=== PATIENT | female | born 1995 | race Two or more races ===

== ENCOUNTER 2022-05-31 14:59 | Outpatient (CLI) | payer OTHER ==
[2022-05-31 15:19] LABS: BASOPHILS % (AUTO) 0.4 %; EOSINOPHILS # (AUTO) 0.5 10^3/uL (0.0-0.7); HCT - HEMATOCRIT 38.5 % (37.0-47.0); HGB - HEMOGLOBIN 13.1 g/dL (12.0-16.0); LYMPHOCYTES % (AUTO) 24.3 %; MEAN CORPUSCULAR HEMOGLOBIN 28.7 pg (27.0-31.0); MEAN CORPUSCULAR VOLUME 84.4 fL (81.0-99.0); MEAN PLATELET VOLUME 10.7 fL (7.9-10.8); MONOCYTES # (AUTO) 0.6 10^3/uL (0.0-1.0); MONOCYTES % (AUTO) 7.2 %; NEUTROPHILS # (AUTO) 5.2 10^3/uL (1.5-6.6); NEUTROPHILS % (AUTO) 61.6 %; PLT - PLATELET COUNT 233 10^3/uL (130-450); RED BLOOD COUNT 4.56 10^6/uL (4.20-5.40); RED CELL DISTRIBUTION WIDTH 13.5 % (12.0-15.0); WHITE BLOOD COUNT 8.4 x10^3/uL (4.8-10.8)
[2022-05-31 15:20] LABS: BILIRUBIN,URINE NEGATIVE (NEGATIVE); GLUCOSE, URINE (UA) NEGATIVE (NEGATIVE); KETONES,URINE (UA) NEGATIVE (NEGATIVE); LEUKOCYTE ESTERASE, URINE NEGATIVE (NEGATIVE); NITRITE,URINE NEGATIVE (NEGATIVE); OCCULT BLOOD,URINE NEGATIVE (NEGATIVE); PROTEIN,URINE NEGATIVE (NEGATIVE); UROBILINOGEN,URINE 0.2 (NORMAL) E.U./dL (NORMAL)
[2022-05-31 15:33] LABS: CLARITY,URINE CLEAR (CLEAR); RBC,URINE None Seen /HPF (0-5); WBC,URINE 0-3 /HPF (0-5)
[2022-05-31 15:34] LABS: BACTERIA,URINE Few /HPF (None Seen); MUCUS,URINE Few Strands; SQUAMOUS EPITHELIAL CELL,UR MANY Squamous (<= Few)
[2022-06-01 04:08] LABS: HBsAG SCREEN Negative (Negative); HCV AB <0.1 s/co ratio (0.0-0.9)
[2022-06-01 09:09] LABS: HIV SCREEN 4TH GENERATION Non Reactive (Non Reactive); VARICELLA-ZOSTER AB IGG 427 index (Immune >165)
[2022-06-05 13:10] LABS: RPR Reactive (Non Reactive); RPR QUANT Non Reactive (NonRea<1:1); TREPONEMA PALLIDUM ANTIBODIES Note: (Non Reactive)
== END 2022-05-31 15:00 | disposition home or self-care (01) ==
LOC: LAB 14:59
PROVIDERS: ATTEND Obstetrics & Gynecology
DX: Z34.90 Encounter for supervision of normal pregnancy, unspecified, unspecified trimester (principal)
CPT/HCPCS: 36415; 81001; 85025; 86592; 86593; 86762; 86780; 86787; 86803; 86850; 86900; 86901; 87086; 87340; 87389

== ENCOUNTER 2022-06-29 08:00 | Outpatient (CLI) | payer OTHER ==
[2022-06-29 13:02] LABS: BILIRUBIN,URINE NEGATIVE (NEGATIVE); GLUCOSE, URINE (UA) NEGATIVE (NEGATIVE); KETONES,URINE (UA) NEGATIVE (NEGATIVE); LEUKOCYTE ESTERASE, URINE NEGATIVE (NEGATIVE); NITRITE,URINE NEGATIVE (NEGATIVE); OCCULT BLOOD,URINE NEGATIVE (NEGATIVE); PH,URINE 6.5 PH (5.0-7.5); PROTEIN,URINE NEGATIVE (NEGATIVE); UROBILINOGEN,URINE 0.2 (NORMAL) E.U./dL (NORMAL)
[2022-06-29 13:03] LABS: CLARITY,URINE CLEAR (CLEAR)
[2022-06-29 13:09] LABS: BACTERIA,URINE None Seen /HPF (None Seen); RBC,URINE None Seen /HPF (0-5); SQUAMOUS EPITHELIAL CELL,UR NONE SEEN (<= Few); WBC,URINE 0-3 /HPF (0-5)
[2022-06-29 23:11] LABS: TRICHOMONAS VAGINALIS DNA NEGATIVE (NEGATIVE)
[2022-06-30 02:01] LABS: CHLAMYDIA TRACHOMATIS DNA NEGATIVE (NEGATIVE); NEISSERIA GONORRHOEAE DNA NEGATIVE (NEGATIVE)
== END 2022-06-29 23:59 | disposition home or self-care (01) ==
LOC: LAB.WC 08:00
PROVIDERS: ATTEND Obstetrics & Gynecology
DX: Z34.90 Encounter for supervision of normal pregnancy, unspecified, unspecified trimester (principal)
CPT/HCPCS: 81001; 87086; 87491; 87591; 87661

== ENCOUNTER 2022-07-25 15:08 | Outpatient (CLI) | payer OTHER ==
--- NOTE | 2022-07-26 17:51 | Ultrasound Report ---
PROCEDURE: OB Detailed Eval INDICATIONS: SUPERVISION OF OUTSIDE/PRIOR DATING DATA: Last menstrual period (LMP): 03/06/2022. LMP-based estimated date of delivery (ROBYN): 12/11/2022. First dating scan (date and location): 05/28/2022. Estimated date of delivery (ROBYN) from first dating scan: 12/10/2022. The below data below was generated using the ROBYN of TECHNIQUE: Real-time scanning was performed of the fetus, with image documentation and biometric measurements. COMPARISON: OB ultrasound 05/28/2022 FINDINGS: General: A single living intrauterine gestation is present. Presentation: Vertex Placenta: Placental position is anterior, without previa. Amniotic fluid index: 13 cm, within normal limits for gestational age. Largest pocket measures 4.6 cm heart rate: 144 beats per minute. Maternal cervical canal: 4.7 cm long; normal length is 2.5 cm or more. biometrics: Biparietal diameter: 4.4 cm 19 weeks 2 days Head circumference: 16.8 cm 19 weeks 3 days Abdominal circumference: 15 cm 20 weeks 1 day Femur length: 3.3 cm 20 weeks 2 days Estimated gestational age from initial scan: 20 weeks 2 days Composite gestational age from present scan: 19 weeks 4 days Estimated weight and percentile: 3 34 g 37th percentile Measurement variability in biometric dating: +/- 10 days from 12-20 weeks gestation, +/- 2 weeks from 20-30 weeks gestation, +/- 3 weeks at 30 weeks gestation or later. Anatomic survey: Neuro: Ventricles are normal at less than 10 mm. Cisterna magna is normal at 3-11 mm. Cerebellum i s normal in size and morphology. Nuchal skin fold: Normal at less than 6 mm between 14 and 20 weeks gestational age. Face: Nose and lips, facial profile are normal. Spine: No evidence for spina bifida. Heart: 4-chambered heart is present, with normal ventricular outflow tracts. Diaphragm: Diaphragm is intact. Stomach: Left-sided stomach is present. Kidneys: No hydronephrosis. Normal is less than 5 mm in 2nd trimester, less than 7 mm in 3rd trimester. Cord: 3 vessel cord has orthotopic insertion. Bladder: Normal in size. Extremities: All 4 extremities are visualized. IMPRESSION: Single live intrauterine with ultrasound gestational age today of 19 weeks 4 days. Anatomy is within normal limits. Reviewed by: Lexi Rosa MD on 07/26/2022 5:50 PM PST Approved by: Lexi Rosa MD on 07/26/2022 5:50 PM PST Station ID: [id number]
== END 2022-07-25 15:09 | disposition home or self-care (01) ==
LOC: DI 15:08
PROVIDERS: ATTEND Obstetrics & Gynecology
DX: Z34.92 Encounter for supervision of normal pregnancy, unspecified, second trimester (principal)

== ENCOUNTER 2022-08-01 14:10 | Outpatient (CLI) | payer OTHER | END 2022-08-01 14:11 | disposition home or self-care (01) | LOC: LAB 14:10 | PROVIDERS: ATTEND Obstetrics & Gynecology | DX: Z34.90 Encounter for supervision of normal pregnancy, unspecified, unspecified trimester (principal) ==

== ENCOUNTER 2022-09-19 09:07 | Outpatient (CLI) | payer OTHER ==
[2022-09-19 12:09] LABS: HCT - HEMATOCRIT 37.2 % (37.0-47.0); HGB - HEMOGLOBIN 12.3 g/dL (12.0-16.0); MEAN CORPUSCULAR HEMOGLOBIN 29.9 pg (27.0-31.0); MEAN CORPUSCULAR HGB CONC 33.1 g/dL (32.0-36.0); MEAN CORPUSCULAR VOLUME 90.5 fL (81.0-99.0); RED BLOOD COUNT 4.11 10^6/uL (4.20-5.40); RED CELL DISTRIBUTION WIDTH 12.7 % (12.0-15.0); WHITE BLOOD COUNT 7.8 x10^3/uL (4.8-10.8)
== END 2022-09-19 09:08 | disposition home or self-care (01) ==
LOC: LAB.N 09:07
PROVIDERS: ATTEND Obstetrics & Gynecology
DX: Z34.90 Encounter for supervision of normal pregnancy, unspecified, unspecified trimester (principal)
CPT/HCPCS: 36415; 82950; 85027

== ENCOUNTER 2022-09-27 07:48 | Outpatient (CLI) | payer OTHER ==
[2022-09-27 08:28] LABS: GTT GLUCOSE,FASTING 82 mg/dL (70-100)
== END 2022-09-27 07:49 | disposition home or self-care (01) ==
LOC: LAB 07:48
PROVIDERS: ATTEND Obstetrics & Gynecology
DX: O99.810 Abnormal glucose complicating pregnancy (principal)
CPT/HCPCS: 36415; 82951; 82952

== ENCOUNTER 2022-11-07 12:27 | Outpatient (CLI) | payer OTHER ==
--- NOTE | 2022-11-07 14:34 | Ultrasound Report ---
PROCEDURE: OB F/U or Repeat INDICATIONS: GESTATIONAL DIABETES OUTSIDE/PRIOR DATING DATA: Last menstrual period (LMP): 03/06/2022. LMP-based estimated date of delivery (ROBYN): 12/11/2022. First dating scan (date and location): 05/28/2022, physician office. Estimated date of delivery (ROBYN) from first dating scan: 12/10/2022. The below data below was generated using the ultrasound ROBYN of 12/10/2022 TECHNIQUE: Real-time scanning was performed of the fetus, with image documentation and biometric measurements. Endovaginal scanning: Not performed COMPARISON: 07/25/2022 FINDINGS: General: A single living intrauterine gestation is present. Presentation: Vertex Placenta: Placental position is anterior, without previa. Amniotic fluid index: 11.5 cm, within normal limits for gestational age. heart rate: 143 beats per minute. Maternal cervical canal: 4.1 cm long; normal length is 2.5 cm or more. biometrics: Biparietal diameter: 8.53 cm, 34 weeks 3 days Head circumference: 30.31 cm, 33 weeks 5 days Abdominal circumference: 32.37 cm, 36 weeks 2 days Femur length: 6.77 cm, 34 weeks 6 days Estimated gestational age from initial scan: 35 weeks 2 days Composite gestational age from present scan: 34 weeks 6 days Estimated weight and percentile: 2670.4 g, 51.5 percentile Measurement variability in biometric dating: +/- 10 days from 12-20 weeks gestation, +/- 2 weeks from 20-30 weeks gestation, +/- 3 weeks at 30 weeks gestation or more. Other: Not applicable. IMPRESSION: 1. Living third trimester intrauterine with no sonographic evidence of complications. 2. Normal interval growth. Today's calculated age is 3 days less than clinical age based on initial u ltrasound. Reviewed by: Chad Rogers MD on 11/07/2022 2:33 PM PDT Approved by: Chad Rogers MD on 11/07/2022 2:33 PM PDT Station ID: [id number]
== END 2022-11-07 12:28 | disposition home or self-care (01) ==
LOC: DI 12:27
PROVIDERS: ATTEND Obstetrics & Gynecology
DX: O24.410 Gestational diabetes mellitus in pregnancy, diet controlled (principal); Z3A.34 34 weeks gestation of pregnancy

== ENCOUNTER 2022-11-15 08:00 | Outpatient (CLI) | payer OTHER | END 2022-11-15 23:59 | disposition home or self-care (01) | LOC: LAB.WC 08:00 | PROVIDERS: ATTEND Obstetrics & Gynecology | DX: Z36.85 Encounter for antenatal screening for Streptococcus B (principal) | CPT/HCPCS: 87797 ==

== ENCOUNTER 2022-12-12 16:42 | Inpatient (IN) | payer OTHER ==
[2022-12-12] MEDS ORDERED: lidocaine 1% 20 ML MDV ID PRN (17:05)
[2022-12-12] MEDS ORDERED: miSOPROStoL 200 MCG TABLET BC PRN (17:05)
[2022-12-12] MEDS ORDERED: LABETALOL 20 MG/4 ML SYRINGE IVP PRN ×3 (17:05)
[2022-12-12] MEDS ORDERED: OXYTOCIN 10 UNIT/ML VIAL IM PRN (17:05)
[2022-12-12] MEDS ORDERED: fentaNYL 100 MCG/2 ML VIAL IVP PRN (17:05)
[2022-12-12] MEDS ORDERED: OXYTOCIN/SODIUM CHLORIDE 500 ML IV PRN (17:05)
[2022-12-12] MEDS ORDERED: NIFEdipine 10 MG CAPSULE PO PRN (17:05)
[2022-12-12] MEDS ORDERED: METHYLERGONOVINE 0.2 MG/ML VIAL IM PRN (17:05)
[2022-12-12] MEDS ORDERED: TRANEXAMIC ACID IN NACL 1,000 MG/100 ML BAG IV PRN (17:05)
[2022-12-12] MEDS ORDERED: CARBOPROST TROMETHAMINE 250 MCG/ML AMP IM PRN (17:05)
[2022-12-12] MEDS ORDERED: miSOPROStoL 200 MCG TABLET PR PRN (17:05)
[2022-12-12] MEDS ORDERED: SODIUM CHLORIDE FLUSH 0.9% 10 ML SYRINGE IVP PRN (17:05)
[2022-12-12] MEDS ORDERED: hydrALAZINE INJ 20 MG/ML VIAL IVP PRN ×2 (17:05)
--- NOTE | 2022-12-12 17:16 | HISTORY & PHYSICAL EXAMINATION ---
Admit History - Visit Reason Visit Reason: Other (induction of labor.) - : 2 Parity: 1 Care: positive: [facility] Risk/History: positive: Gestational diabetes (diet controlled) Review of Systems - Cardiovascular Cariovascular: denies: Chest pain - Respiratory Respiratory: denies: SOB at rest - All Other Systems All Other Systems: reports: Reviewed and negative Physical - Abdominal Exam Vital Signs: Temp Pulse Resp BP Pulse Ox O2 Flow Rate 97.9 F 121 H 16 108/74 100 12/12/22 17:01 12/12/22 17:01 12/12/22 17:01 12/12/22 17:01 12/12/22 17:01 - Vaginal Exam Dilation (in cm): 0 Plan for Labor - Plan For Labor Plan for Labor: induction of labor -cytotec discussed risks, benefits, and alternatives with patient and all questions answered.
[2022-12-12] MEDS ORDERED: miSOPROStoL 100 MCG TABLET BC ONE (18:00)
[2022-12-12] MEDS ORDERED: OXYTOCIN/SODIUM CHLORIDE 500 ML IV SCH (18:00)
[2022-12-12 18:03] LABS: BASOPHILS % (AUTO) 0.4 %; EOSINOPHILS # (AUTO) 0.1 10^3/uL (0.0-0.7); EOSINOPHILS % (AUTO) 1.7 %; HCT - HEMATOCRIT 36.9 % (37.0-47.0); HGB - HEMOGLOBIN 12.1 g/dL (12.0-16.0); LYMPHOCYTES # (AUTO) 1.2 10^3/uL (1.5-3.5); MEAN CORPUSCULAR HEMOGLOBIN 28.8 pg (27.0-31.0); MEAN CORPUSCULAR HGB CONC 32.8 g/dL (32.0-36.0); MEAN CORPUSCULAR VOLUME 87.9 fL (81.0-99.0); MEAN PLATELET VOLUME 12.3 fL (7.9-10.8); MONOCYTES # (AUTO) 0.7 10^3/uL (0.0-1.0); MONOCYTES % (AUTO) 9.2 %; NEUTROPHILS # (AUTO) 5.2 10^3/uL (1.5-6.6); NEUTROPHILS % (AUTO) 72.6 %; PLT - PLATELET COUNT 170 10^3/uL (130-450); RED CELL DISTRIBUTION WIDTH 14.4 % (12.0-15.0); WHITE BLOOD COUNT 7.2 x10^3/uL (4.8-10.8)
[2022-12-12 18:17] LABS: ALBUMIN 3.1 g/dL (3.2-5.5); ALBUMIN/GLOBULIN RATIO 0.8 (1.0-2.2); BILIRUBIN,TOTAL 0.5 mg/dL (0.2-1.0); CALCIUM 8.9 mg/dL (8.5-10.3); CREATININE 0.5 mg/dL (0.4-1.0); POTASSIUM 4.1 mmol/L (3.5-5.0); TOTAL PROTEIN 6.9 g/dL (6.7-8.2)
[2022-12-12] MEDS: SODIUM CHLORIDE FLUSH 0.9% 10 ML SYRINGE IVP SCH (20:08)
[2022-12-12] MEDS: miSOPROStoL 100 MCG TABLET BC SCH ×2 (20:29→22:46)
[2022-12-12] MEDS: LACTATED RINGERS 1,000 ML IV SCH (20:42)
[2022-12-13] MEDS: miSOPROStoL 100 MCG TABLET BC SCH ×4 (03:23→21:27)
[2022-12-13] MEDS: SODIUM CHLORIDE FLUSH 0.9% 10 ML SYRINGE IVP SCH (03:25)
[2022-12-13] MEDS: LACTATED RINGERS 1,000 ML IV SCH (03:25)
[2022-12-13] MEDS ORDERED: ROPIVACAINE 0.2% 200 MG/100 ML BAG EP ONE (03:33)
[2022-12-13] MEDS ORDERED: ePHEDrine 50 MG/ML VIAL IVP PRN (04:11)
[2022-12-13] MEDS ORDERED: ONDANSETRON 4 MG/2 ML VIAL IVP PRN (04:11)
[2022-12-13] MEDS ORDERED: ROPIVACAINE 0.2% 200 MG/100 ML BAG EP PRN (04:11)
[2022-12-13] MEDS ORDERED: diphenhydrAMINE INJ 50 MG/ML VIAL IVP PRN (04:11)
[2022-12-13] MEDS ORDERED: METOCLOPRAMIDE 10 MG/2 ML VIAL IVP PRN (04:11)
[2022-12-13] MEDS ORDERED: NALBUPHINE 10 MG/ML AMP IVP PRN (04:11)
[2022-12-13] MEDS ORDERED: NALOXONE 0.4 MG/ML VIAL IVP PRN (04:11)
--- NOTE | 2022-12-13 04:14 | ANESTHESIA ---
Pre-Anesthesia VS, & Labs - Diagnosis term labor IUP - Procedure Epidural for Vital Signs: Temp Pulse Resp BP Pulse Ox O2 Flow Rate 36.7 C 85 18 125/76 95 12/12/22 20:00 12/12/22 20:00 12/12/22 20:00 12/12/22 20:00 12/12/22 20:00 Height: 5 ft 5 in Weight (kg): 90.718 kg Body Mass Index: 33.3 BMI Classification: Obese - NPO Last Fluid Intake: t/o night Last Food Intake: full dinner 12/12 - Is Patient ?: Yes - Lab Results Current Lab Results: Laboratory Tests 12/12/22 17:30: Blood Type O POSITIVE, Antibody Screen NEGATIVE 12/12/22 17:30: Sodium 137, Potassium 4.1, Chloride 106, Carbon Dioxide 23, An ion Gap 8.0, BUN 16, Creatinine 0.5, Estimated GFR (MDRD) 147, Glucose 80, Calcium 8.9, Total Bilirubin 0.5, AST 21, ALT 17, Alkaline Phosphatase 128 H, Total Protein 6.9, Albumin 3.1 L, Globulin 3.8, Albumin/Globulin Ratio 0.8 L 12/12/22 17:30: WBC 7.2, RBC 4.20, Hgb 12.1, Hct 36.9 L, MCV 87.9, MCH 28.8, MCHC 32.8, RDW 14.4, Plt Count 170, MPV 12.3 H, Neut # (Auto) 5.2, Lymph # (Auto) 1.2 L, [place] # (Auto) 0.7, Eos # (Auto) 0.1, Baso # (Auto) 0.0, Absolute Nucleated RBC 0.00, Nucleated RBC % 0.0 Fish Bones: 12/12/22 17:30 12/12/22 17:30 Home Medications and Allergies Active Medications Carboprost Tromethamine (Carboprost Tromethamine 250 Mcg/Ml Amp) 250 mcg IM .ONCE PRN PRN Reason: Hemorrhage Diphenhydramine HCl (Diphenhydramine Inj 50 Mg/Ml Vial) 12.5 - 25 mg IVP Q6HR PRN PRN Reason: ITCHING Ephedrine Sulfate (Ephedrine 50 Mg/Ml Vial) 5 mg IVP Q5M PRN PRN Reason: For SBP<100;give until SBP>100 Fentanyl (Fentanyl 100 Mcg/2 Ml Vial) 50 mcg IVP Q1H PRN PRN Reason: Severe Pain (score 7-10) Hydralazine HCl (Hydralazine Inj 20 Mg/Ml Vial) 5 - 10 mg IVP Q20M PRN; Protocol PRN Reason: SBP> or= 160 OR DBP> or= 110 Hydralazine HCl (Hydralazine Inj 20 Mg/Ml Vial) 10 mg IVP .ONCE PRN; Protocol PRN Reason: SBP> or= 160 OR DBP> or= 110 Oxytocin/Sodium Chloride (Pitocin/Sodium Chloride) 500 mls @ 999 mls/hr IV PRN PRN; Protocol PRN Reason: POST- HEMORR PREVENTION Tranexamic Acid (Tranexamic 1,000 Mg/100ml-Nacl) 1,000 mg in 100 mls @ 600 mls/hr IV Q30M PRN PRN Reason: EBL >1200mL and within 3hr Oxytocin/Sodium Chloride (Pitocin/Sodium Chloride) 500 mls @ 1 mls/hr IV TITR KARMEN; Protocol Last Admin: 12/12/22 20:41 Dose: Not Given Lactated Ringer's (Lr) 1,000 mls @ 125 mls/hr IV .Q8H KARMEN Last Admin: 12/13/22 03:25 Dose: 125 mls/hr Ropivacaine (Naropin 0.2%) 200 mg in 100 mls @ 0 mls/hr EP PRN PRN; Protocol PRN Reason: PAIN Labetalol HCl (Labetalol 20 Mg/4 Ml Syringe) 20 - 80 mg IVP Q10M PRN; Protocol PRN Reason: SBP> or= 160 OR DBP> or= 110 Labetalol HCl (Labetalol 20 Mg/4 Ml Syringe) 20 mg IVP .ONCE PRN; Protocol PRN Reason: SBP> or= 160 OR DBP> or= 110 Labetalol HCl (Labetalol 20 Mg/4 Ml Syringe) 20 - 40 mg IVP Q10M PRN; Protocol PRN Reason: SBP> or= 160 OR DBP> or= 110 Lidocaine HCl (Lidocaine 1% 20 Ml Mdv) 20 ml ID .ONCE PRN PRN Reason: PERINEAL REPAIR Stop: 12/15/22 17:05 Methylergonovine Maleate (Methylergonovine 0.2 Mg/Ml Vial) 0.2 mg IM .ONCE PRN PRN Reason: Hemorrhage Metoclopramide HCl (Metoclopramide 10 Mg/2 Ml Vial) 10 mg IVP Q6HR PRN PRN Reason: Nausea / Vomiting Misoprostol (Misoprostol 200 Mcg Tablet) 600 mcg BC .ONCE PRN PRN Reason: Hemorrhage Misoprostol (Misoprostol 200 Mcg Tablet) 800 mcg [place] .ONCE PRN PRN Reason: Hemorrhage Misoprostol (Misoprostol 100 Mcg Tablet) [address] [facility] Stop: 12/13/22 14:01 Last Admin: 12/13/22 03:23 Dose: Not Given Nalbuphine HCl (Nalbuphine 10 Mg/Ml Amp) 2.5 - 5 mg IVP Q4H PRN PRN Reason: ITCHING Naloxone HCl (Naloxone 0.4 Mg/Ml Vial) 0.1 mg IVP Q2M PRN PRN Reason: RR<8 Nifedipine (Nifedipine 10 Mg Capsule) 10 - 20 mg PO Q20M PRN; Protocol PRN Reason: SBP> or= 160 OR DBP> or= 110 Ondansetron HCl (Ondansetron 4 Mg/2 Ml Vial) 4 mg IVP Q6HR PRN PRN Reason: Nausea / Vomiting Oxytocin (Oxytocin 10 Unit/Ml Vial) 10 unit IM .ONCE PRN PRN Reason: Step One if no IV access. Sodium Chloride (Sodium Chloride Flush 0.9% 10 Ml Syringe) 10 ml IVP PRN PRN PRN Reason: NEEDED PER PROVIDER ORDERS Sodium Chloride (Sodium Chloride Flush 0.9% 10 Ml Syringe) [address] [facility] Last Admin: 12/13/22 03:25 Dose: 10 ml Allergies/Adverse Reactions: Allergies Allergy/AdvReac Type Severity Reaction Status Date / Time pollen extracts Allergy Mild Respiratory Verified 12/12/22 20:45 Anes History & Medical History - Anesthetic History Anesthesia Complications: reports: No previous complications Family history of Anesthesia Complications: Denies Family history of Malignant Hyperthermia: Denies - Medical History Cardiovascular: reports: Hypertension Pulmonary: reports: None Gastrointestinal: reports: GERD Urinary: reports: None Neuro: reports: None Musculoskeletal: reports: None Endocrine/Autoimmune: reports: None Blood Disorders: reports: None Smoking Status: Never smoker History of Cancer?: No - Surgical History Other Past Surgical History: wisdom teeth extraction. previous epidural for delivery - Obstetrical History : 2 Parity: 1 Events: reports: Gestational diabetes (diet controlled) Exam General: Alert, Oriented x3, Cooperative Dental: WNL Neck Mobility: Normal Mallampati classification: I Thyromental Distance: 4-6 cm Respiratory: No respiratory distress Cardiovascular: Regular rate Neurological: Normal speech Mental/Cognitive Status: Alert/Oriented X3, Normal for patient Cognitive Status: Within normal limits Plan Anesthesia Type: Epidural Consent for Procedure(s) Verified and Reviewed: Yes Code Status: Attempt Resuscitation ASA classification: 2-Mild systemic disease Is this case an emergency?: No
--- NOTE | 2022-12-13 06:48 | DELIVERY NOTE ---
Delivery Note - Labor Labor: positive: Other (Inducted by misoprostol) - Delivery Method Infant Delivery Method: positive: Spontaneous vaginal delivery - Cervical Ripening Method Cervical Ripening Method: positive: Misoprostil - Presentation Presentation: positive: Vertex - Nuchal Cord Nuchal Cord: positive: None, Present (loose nuchal x 1 reduced at perineum) - Anesthetic Anesthetic Type: - Amniotic Fluid Description Amniotic Fluid Description: positive: Clear - Laceration Laceration: positive: None - Delivery Outcome Delivery Outcome: positive: Livebirth - : positive: Placed in direct skin contact with mother, [place] used sex: positive: Female - Cord Cord: positive: 3 vessels - Placenta Placenta: positive: Intact, Spontaneous - Estimated Blood Loss Estimated Blood Loss (in cc): 100 - Post Delivery Events Post Delivery Events: positive: No post delivery events - Delivery Comments (Free Text/Narrative) Delivery Comments (Free Text/Narrative): Stage I: Patient is a presenting for induction of labor Misoprostol was given for cervical ripening FHTs remained reassuring throughout the first stage. Patient received an epidural for anesthesia. Stage II: Female was atraumatcally delivered from DAMIAN position. Loose nuchal cord x 1 reduced at perineum. The anterior shoulder was delivered without difficulty followed by the posterior shoulder and body. Infant was vigorous at delivery. was bulb suctioned and cord was doubly clamped and cut. Infant was placed on mom. Weight pending, APGARS 9/9. Stage III: Gentle cord traction and crede maneuver were used. Placenta delivered spontaneously, intact, 3vc. Course: Uterine tone was firm with massage after delivery of the placenta, pitocin was started.
--- NOTE | 2022-12-13 06:53 | PROCEDURE REPORT ---
Hospitalist Procedure Note - Procedure Note Procedure Note: Delivery Note - Labor Labor: positive: Other (Inducted by misoprostol) - Infant Delivery Method Infant Delivery Method: positive: Spontaneous vaginal delivery - Cervical Ripening Method Cervical Ripening Method: positive: Misoprostil - Presentation Presentation: positive: Vertex - Nuchal Cord Nuchal Cord: positive: None, Present (loose nuchal x 1 reduced at perineum) - Anesthetic Anesthetic Type: - Amniotic Fluid Description Amniotic Fluid Description: positive: Clear - Laceration Laceration: positive: None - Delivery Outcome Delivery Outcome: positive: Livebirth - : positive: Placed in direct skin contact with mother, [place] used [place] sex: positive: Female - Cord Cord: positive: 3 vessels - Placenta Placenta: positive: Intact, Spontaneous - Estimated Blood Loss Estimated Blood Loss (in cc): 100 - Post Delivery Events Post Delivery Events: positive: No post delivery events - Delivery Comments (Free Text/Narrative) Delivery Comments (Free Text/Narrative): Stage I: Patient is a presenting for induction of labor Misoprostol was given for cervical ripening FHTs remained reassuring throughout the first stage. Patient received an epidural for anesthesia. Stage II: Female infant was atraumatcally delivered from DAMIAN position. Loose nuchal cord x 1 reduced at perineum. The anterior shoulder was delivered without difficulty followed by the posterior shoulder and body. was vigorous at delivery. Infant was bulb suctioned and cord was doubly clamped and cut. was placed on mom. Weight pending, APGARS 9/9. Stage III: Gentle cord traction and crede maneuver were used. Placenta delivered spontaneously, intact, 3vc. Course: Uterine tone was firm with massage after delivery of the placenta, pitocin was started.
[2022-12-13] MEDS ORDERED: LACTATED RINGERS 1,000 ML IV SCH ×2 (07:00→10:00)
[2022-12-13] MEDS ORDERED: SIMETHICONE CHEW 80 MG TABLET PO PRN (09:51)
[2022-12-13] MEDS ORDERED: DOCUSATE SODIUM 100 MG CAPSULE PO PRN ×2 (09:51→22:23)
[2022-12-13] MEDS: ACETAMINOPHEN 500 MG TABLET PO SCH ×2 (10:08→17:47)
[2022-12-13] MEDS: IBUPROFEN 600 MG TABLET PO SCH ×3 (10:08→22:36)
[2022-12-13] MEDS: DOCUSATE SODIUM 100 MG CAPSULE PO PRN (22:36)
[2022-12-13] MEDS ORDERED: DOCUSATE SODIUM 100 MG CAPSULE PO SCH (23:00)
[2022-12-14] MEDS: ACETAMINOPHEN 500 MG TABLET PO SCH (01:25)
[2022-12-14] MEDS: IBUPROFEN 600 MG TABLET PO SCH (05:17)
--- NOTE | 2022-12-14 06:51 | DISCHARGE SUMMARY ---
Discharge Summary Admit Date: 12/12/22 Discharge Date: 12/14/22 Discharging Provider: Blaze Tony MD Code Status: Attempt Resuscitation Condition at Discharge: Good Discharge Disposition: 01 Home, Self Care - DIAGNOSES Admission Diagnoses: 39 weeks gestation A1 GDM Induction of labor Discharge Diagnoses with Status of Each Condition: 39 weeks gestation A1 GDM Induction of labor Status post spontaneous vaginal delivery Delivery of live ferrara - HPI History of Present Illness: Subjective Patient reports she is doing well. Lochia appropriate. Denies heavy bleeding. Ambulating. Pelvic and abdominal pain well-controlled. Tolerating oral intake. Diet: Regular. Voiding without difficulty. Passing flatus. Denies BM. Patient is bonding with baby in room Breast feeding going well. Denies feeling lightheaded, dizzy or excessively fatigued. Objective General: Alert, oriented, no apparent distress. Cardiovascular: Regular rate. Regular rhythm. Lungs: No increased work of breathing. Abdomen: Uterus firm. Below umbilicus. No guarding or rebound. Extremities: No pain on palpation. No cords palpated. Distal pulses intact. - HOSPITAL COURSE Hospital Course: Patient is a 19-year-old G2, P1 who presented at 39 weeks gestation for induction of labor secondary to A1 GDM. She received misoprostol for cervical ripening. She received an epidural for pain control. Delivery was uncomplicated and course was similarly unremarkable. She desired to discharge on day 1. weight 3264 g - ALLERGIES Allergies/Adverse Reactions: Allergies Allergy/AdvReac Type Severity Reaction Status Date / Time pollen extracts Allergy Mild Respiratory Verified 12/12/22 20:45 - LABS Result Diagrams: 12/12/22 17:30 12/12/22 17:30 - FOLLOW UP Follow Up: With Blaze Tony MD in 1 week - TIME SPENT Time Spent in Discharge (Minutes): 20
--- NOTE | 2022-12-14 06:53 | Discharge Plan ---
Discharge Plan Problem Reviewed?: Yes Disposition: Home, Self Care Condition: Good Diet: Regular Activity Restrictions: Activity as Tolerated Shower Restrictions: No Driving Restrictions: No Instruction Topics: Vaginal After, Depression No Smoking: If you smoke, Please STOP! Call for help. Follow-up with: Blaze Tony MD [Provider Admit Priv/Credential] -
[2022-12-14 08:00] VITALS: BP 115/72
[2022-12-14] MEDS: DOCUSATE SODIUM 100 MG CAPSULE PO PRN (09:37)
[2022-12-14] MEDS ORDERED: MEASLES,MUMPS & RUBELLA VACC 0.5 ML VIAL SUBQ ONE ×2 (11:10→11:13)
--- NOTE | 2022-12-14 11:28 | Labor Flowsheet ---
Labor Flowsheet Datetime Report Generated by CPN: 12/14/2022 11:28 Datetime: 12/14/2022 07:55 VITAL SIGNS NBP Sys/Alejandra/Mean (mmHg): 115 : 72 : 82 Pulse: 69 Datetime: 12/13/2022 08:29 Stage of : Recovery PAIN Pain Scale: 0 Pain Presence: None/Denies Datetime: 12/13/2022 07:59 Respirations: 17 SpO2 (%): 98 Temperature (C): 36.8 Temperature Route: Oral Datetime: 12/13/2022 06:35 UTERINE ACTIVITY Monitor Mode: External Frequency (min): 2 Quality: Strong Duration (sec): 60-80 Pattern: Normal: <= 5 Contractions in 10 Minutes Resting Tone (Palpate): Relaxed FHR Baseline Rate : 125 Datetime: 12/13/2022 06:33 Pushing Progress: with Pushing; Pushing Effectively with Contractions Datetime: 12/13/2022 06:29 Variability: Moderate 6-25 bpm Comments: incomplete tracing with pushing Datetime: 12/13/2022 06:28 STAGE 2 Pushing: Coached on Pushing; Urge to Push Pushing Position: Pushing with Contractions; Pushing Left Side Datetime: 12/13/2022 06:25 Accelerations: 15X15 Decelerations: Variable Category: Category II Datetime: 12/13/2022 06:24 Actions for Decelerations: Side to Side Patient Position/Activity: Right Lateral Datetime: 12/13/2022 06:21 VAGINAL EXAM Dilatation (cm): 10.0 Effacement (%): 100 Station: 1 Datetime: 12/13/2022 06:20 Monitor Interventions for UA: [place] Adjusted Datetime: 12/13/2022 06:00 ASSESSMENT A Monitor Mode: External US Datetime: 12/13/2022 05:41 Patient Care Comments: position readjusted Datetime: 12/13/2022 05:38 Monitor Interventions for FHR: Ultrasound Adjusted Datetime: 12/13/2022 05:20 Communication Comments: SVE reported to E BAltes MD will attend dellivery en route Datetime: 12/13/2022 05:16 Exam by: A Bayron Vaginal Exam Comments: anterior lip only Datetime: 12/13/2022 05:00 FHR Baseline Changes: No Baseline Change Datetime: 12/13/2022 04:54 Vital Sign Comments: BP taken during intense copntractio nwith arm will repositio ncuff and retake Datetime: 12/13/2022 04:49 Cervix, Consistency: Soft Cervix, Position: Anterior Datetime: 12/13/2022 04:46 Pain Type: Pressure Pain Location: Perineum Datetime: 12/13/2022 04:20 Membrane Status: Ruptured Membranes Rupture Method: Spontaneous Amniotic Fluid Color: Clear Amniotic Fluid Amount: Scant Amniotic Fluid Odor: Normal Pool: Positive Membrane Comments: reports leaking fluid Datetime: 12/13/2022 04:13 Vaginal Bleeding: None I/O Interventions: Morfin Cath Inserted Datetime: 12/13/2022 03:57 ANESTHESIA Anesthesia Plans: Epidural Epidural Procedure: Completed Epidural Procedure Other: Pump Started Datetime: 12/13/2022 03:56 Pain Assessment Comments: decreasing with epidural Datetime: 12/13/2022 03:37 Anesthesia Comments: numbing administered per anesthesia Datetime: 12/13/2022 03:35 PROCEDURE TIME OUT Procedure Type: 0336 Epidural Positioning: Sitting Datetime: 12/13/2022 03:31 Procedure Verify: Correct Patient Identity; Correct Side and Site are Marked; Accurate Procedure Co nsent Form; Agreement on Procedure to be Done; Correct Patient Position; Safety Precautions Based on Patient History or Medication Use Datetime: 12/13/2022 03:20 PATIENT CARE IV/Blood Work: IV Bolus Given ml @ 500 Datetime: 12/13/2022 03:02 Contraction Comments: per pt report and palpatio n Datetime: 12/13/2022 03:00 Medication Comments: nitrous gas in use for labour manegment TEACHING Instructional Method: Verbal Teaching Comments: use of nitrous Datetime: 12/13/2022 02:00 Pain Goal: 8 Pain Coping: Breathing Through Contractions; Declines Medication or Epidural Comfort Measures: Breathing/Relaxation; Family Support Datetime: 12/12/2022 23:46 Pain Relief Measures: Comfort Measures Datetime: 12/12/2022 22:48 MEDICATIONS Cervical Ripening Agents: Cytotec @ Datetime: 12/12/2022 20:10 MATERNAL ASSESSMENT Level of Consciousness: Alert DTR's/Clonus: DTRs 2+ Headache: Denies Breath Sounds, Left: Clear and Equal Breath Sounds, Right: Clear and Equal Nausea/Vomiting: Denies RUQ Epigastric Pain: Denies Plan of Care: Plan of Care Discussed Pain Management: IV Narcotics; Epidural; PRN Medications; Pain Scale/Goals; Comfort Measures Datetime: 12/12/2022 19:11 COMMUNICATION Communication: RN at Bedside; RN Reviewed Strip Datetime: 12/12/2022 17:39 Cervical Ripening Agents Other: 50mcg
== END 2022-12-14 11:15 | disposition home or self-care (01) | DRG 807 ==
LOC: WFO 16:42 → FBP 16:45 → WFO 17:04 → FBP 17:05
PROVIDERS: ADMIT Obstetrics & Gynecology Obstetrics; ATTEND Obstetrics & Gynecology
PROC: 3E0DXGC Introduction of Other Therapeutic Substance into Mouth and Pharynx, External Approach (ICD-10-PCS; 2022-12-12)
PROC: 10E0XZZ Delivery of Products of Conception, External Approach (ICD-10-PCS; principal; 2022-12-13)
DX: O24.420 Gestational diabetes mellitus in childbirth, diet controlled (principal); Z37.0 Single live birth; O69.81X0 Labor and delivery complicated by cord around neck, without compression, not applicable or unspecified; O99.214 Obesity complicating childbirth; Z3A.39 39 weeks gestation of pregnancy
CPT/HCPCS: 80053; 85025; 86850; 86900; 86901; A9270; J7120

== ENCOUNTER 2023-02-14 08:43 | Outpatient (CLI) | payer OTHER ==
[2023-02-14 09:24] LABS: GTT GLUCOSE,FASTING 95 mg/dL (70-100)
== END 2023-02-14 08:44 | disposition home or self-care (01) ==
LOC: LAB 08:43
PROVIDERS: ATTEND Obstetrics & Gynecology
DX: O24.419 Gestational diabetes mellitus in pregnancy, unspecified control (principal)
CPT/HCPCS: 36415; 82951